=== PATIENT | female | born 1970 | race American Indian/Alaskan Native ===

== ENCOUNTER 2020-09-08 15:29 | Inpatient (IN) | payer SELFPAY ==
--- NOTE | 2020-09-08 16:39 | Event Note ---
ED Screening Note Date of service: 09/08/20 Time: 16:37 ED Screening Note: 50-year-old female patient with history of iron deficiency anemia presents to emergency department for a blood transfusion. Patient received a telephone call from her primary care provider today, who told her that her hemoglobin was 6.4, and she needed to come to the emergency department. She endorses dyspnea, cough, and congestion. States multiple COVID-19 tests have been negative. States her menstrual cycles have been heavy but she is not currently bleeding. No recent trauma. No new medications. General: Awake, appropriately interactive, no acute distress. Neck: Supple. Full range of motion intact. Cardiovascular: Normal peripheral perfusion. Pulmonary: No respiratory distress. Patient is speaking normally without use of accessory muscles. Skin: No apparent rashes or lesions. Neurological: No facial asymmetry. Speech is clear. Follows commands. Patient is alert and oriented. Musculoskeletal: Moves all four extremities spontaneously with normal range of motion. Psych: Cooperative. Appropriate mood and affect. I have greeted and performed a focused rapid initial assessment of this patient. A comprehensive ED assessment and evaluation of the patient, analysis of all test results, and completion of the medical decision-making process will be conducted by additional ED providers. This initial assessment/diagnostic orders/clinical plan/treatment(s) is/are subject to change based on patients health status, clinical progression and re-assessment. Further treatment and workup at subsequent clinical provider's discretion. Patient/guardian urged not to elope from the ED as their condition may be serious if not clinically assessed and managed.
--- NOTE | 2020-09-08 17:32 | XRay Report ---
CHEST 2 VIEWS INDICATION / CLINICAL INFORMATION: SOB. COMPARISON: None available. FINDINGS: SUPPORT DEVICES: None. HEART / MEDIASTINUM: No significant abnormality. LUNGS / PLEURA: No significant pulmonary or pleural abnormality. No pneumothorax. ADDITIONAL FINDINGS: No significant additional findings. IMPRESSION: 1. No acute findings. Signer Name: Silvano Corona MD Signed: 09/08/2020 5:28 PM Workstation Name: [id number]
[2020-09-08 17:39] LABS: INR 0.97 (0.87-1.13)
[2020-09-08 17:40] LABS: Partial Thromboplastin Time 23.8 Sec. (24.2-36.6)
[2020-09-08 17:48] LABS: Basophils # (Auto) 0.1 K/mm3 (0.0-0.1); Eosinophils % (Auto) 0.4 % (0.0-4.3); Mean Corpuscular HGB Conc 28 % (30-34); Monocytes # (Auto) 0.9 K/mm3 (0.0-0.8); Monocytes % (Auto) 7.1 % (0.0-7.3); Platelet Count 406 K/mm3 (140-440); Red Blood Count 4.23 M/mm3 (3.65-5.03)
[2020-09-08 17:53] LABS: Hematocrit 24.4 % (30.3-42.9); Hemoglobin 6.8 gm/dl (10.1-14.3); Lymphocytes % (Auto) 25.1 % (13.4-35.0); Mean Corpuscular Volume 58 fl (79-97); Red Cell Distribution Width 24.9 % (13.2-15.2)
[2020-09-08 17:54] LABS: Basophils % (Auto) 1.1 % (0.0-1.8)
[2020-09-08 18:02] LABS: Alanine Aminotransferase 8 units/L (7-56); Albumin 4.5 g/dL (3.9-5); Blood Urea Nitrogen 13 mg/dL (7-17); Calcium 9.4 mg/dL (8.4-10.2); Hemolysis Index 0
[2020-09-08 18:06] LABS: BUN/Creatinine Ratio 22
--- NOTE | 2020-09-09 02:58 | Emergency Department Report ---
<CHAVA MATHIAS - Last Filed: 09/09/20 02:53> ED General Adult HPI - General Chief complaint: Medical Clearance Stated complaint: TRANSFUSION Time Seen by Provider: 09/09/20 02:16 Source: patient Mode of arrival: Ambulatory Limitations: No Limitations - History of Present Illness Initial comments: 50-year-old -[place] female with a past medical history of an iron deficiency anemia presents to the emergency department complaining of weakness, lightheadedness, presyncope and increased fatigue with her usual activities of daily living of unknown etiology. She went to her doctor's office to be evaluated and was called back at home and advised to go to the emergency department for treatment due to anemia. She reports no hemoptysis, hematemesis hematochezia no melena no diarrhea no chest pain no palpitations or bleeding of any type to her knowledge. - Related Data Allergies Allergy/AdvReac Type Severity Reaction Status Date / Time No Known Allergies Allergy Unverified 12/20/14 12:42 ED Review of Systems Comment: All other systems reviewed and negative ED Past Medical Hx - Past Medical History Previous Medical History?: Yes Additional medical history: anemia - Surgical History Past Surgical History?: No ED Physical Exam - General Limitations: No Limitations General appearance: alert, in no apparent distress - Head Head exam: Present: atraumatic, normocephalic - Eye Eye exam: Present: normal appearance, PERRL, EOMI - ENT ENT exam: Present: mucous membranes moist - Neck Neck exam: Present: normal inspection, full ROM - Respiratory Respiratory exam: Present: normal lung sounds bilaterally. Absent: respiratory distress, wheezes, rales, rhonchi - Cardiovascular Cardiovascular Exam: Present: regular rate, normal rhythm. Absent: systolic murmur, diastolic murmur, rubs, gallop - GI/Abdominal GI/Abdominal exam: Present: soft, normal bowel sounds. Absent: distended, tenderness, guarding - Rectal Rectal exam: Present: heme (-) stool (fiscal technician was present during examin ation to service attendant cafeteria) - Extremities Exam Extremities exam: Present: normal inspection - Back Exam Back exam: Present: normal inspection. Absent: CVA tenderness (R), CVA tenderness (L) - Neurological Exam Neurological exam: Present: alert, oriented X3, CN II-XII intact, normal gait - Psychiatric Psychiatric exam: Present: normal affect, normal mood. Absent: anxious, flat affect, manic - Skin Skin exam: Present: warm, dry, intact, normal color. Absent: rash, cyanosis, diaphoretic, urticaria, petechiae, abrasion, ecchymosis ED Medical Decision Making - Lab Data Result diagrams: 09/08/20 16:50 09/08/20 16:50 ED Disposition Clinical Impression: Symptomatic anemia Disposition: DC-09 OP ADMIT IP TO THIS HOSP Is pt being admited?: Yes Does the pt Need Aspirin: No Condition: Critical <PETRONA LANDA III - Last Filed: 09/09/20 05:42> ED General Adult HPI - General PUI?: No ED Review of Systems ROS: Stated complaint: TRANSFUSION Other details as noted in HPI ED Course Vital Signs 09/08/20 09/09/20 09/09/20 16:20 03:16 03:38 Temperature 98.8 F Pulse Rate 81 74 Respiratory 18 21 16 Rate Blood Pressure 125/78 134/80 O2 Sat by Pulse 100 100 Oximetry 09/09/20 04:00 Temperature Pulse Rate 75 Respiratory 18 Rate Blood Pressure 139/79 O2 Sat by Pulse 100 Oximetry - Reevaluation(s) Reevaluation #1: I reviewed the findings and management of this patient in real-time and I have personally seen and examined this patient and participated in the decision making for this patient with the midlevel. Patient is a 50-year-old female that came into the emergency room with complaints of weakness and fatigue. Patient found to have a hemoglobin less than 7. Patient typed and crossed and will be transfused 1 unit. Patient to be admitted to the hospital service for further evaluation treatment and observation. I examined the patient. Patient has normal S1-S2. Patient's lung sounds are clear. Patient has scleral pallor noted to her bilateral eyes. Patient skin is intact. Patient is alert and oriented x4. 09/09/20 03:33 Reevaluation #2: I discussed all results with patient. I discussed plan of care with patient. Patient agrees with plan of care and admission. Patient to be admitted to the hospitalist service. 09/09/20 03:45 - Consultations Consultation #1: hospitalist consulted for admission. Hospitalist to admit patient. 09/09/20 03:34 ED Medical Decision Making - Lab Data Result diagrams: 09/08/20 16:50 09/08/20 16:50 - Medical Decision Making Patient is a 50-year-old female that presents emergency room with complaints of weakness, fatigue, lightheadedness presyncope. Patient had labs done and were unremarkable except for severe anemia. Patient's hemoglobin less than 7. Patient typed and crossed for transfusion. Patient admitted to the hospital service for further evaluation treatment. Critical care time documented due to the multiple reassessments, prolonged time at the bedside, interpretation of diagnostics and labs. - Differential Diagnosis Fatigue, weakness, presyncope, lightheadedness, anemia Critical Care Time: Yes Critical care time in (mins) excluding proc time.: 35 Critical care attestation.: If time is entered above; I have spent that time in minutes in the direct care of this critically ill patient, excluding procedure time. Critical Care Time: 35 minutes ED Disposition Is pt being admited?: Yes Does the pt Need Aspirin: No Time of Disposition: 05:33
[2020-09-09] MEDS ORDERED: SODIUM CHLORIDE 0.9% 500 ML 500 ML IV ONE (03:07)
[2020-09-09] MEDS ORDERED: ACETAMINOPHEN 325 MG TAB PO PRN (03:26)
[2020-09-09] MEDS ORDERED: ONDANSETRON 4 MG/2 ML INJ IV PRN (03:26)
[2020-09-09] MEDS ORDERED: MAGNESIUM HYDROXIDE (MOM) ORAL LIQD UDC PO PRN (03:27)
--- NOTE | 2020-09-09 03:36 | History and Physical Report ---
History of Present Illness Date of examination: 09/09/20 Date of admission: 09/09/20 03:01 Chief complaint: Dizziness History of present illness: 50-year-old -Citizen Of The [place] female with known history of anemia presenting to the emergency room today complaining of generalized weakness and lightheadedness. She also indicates that she has been having generalized fa tigue and has been unable to carry out her usual activities. Patient has known history of uterine fibroid and has been having heavy bleeding during her menstruation. She has been following up with her nurse behavioral health care and had also been on iron pills. Patient had gone to see a nurse behavioral health care for the past few days and had some blood work and she was subsequently encouraged to report to the emergency room for possible blood transfusion as her hemoglobin was low. She denies any chest pain but has had occasional shortness of breath. No nausea vomiting, no diarrhea, no abdominal pain, no hematuria or dysuria, no hematochezia, no melena and no hematemesis. Work-up in the emergency room today revealsHemoglobin of 6.6.8 and hematocrit of 24.4. Patient had a mildly low potassium of 3.4 She is being scheduled for blood transfusion for symptomatic anemia. Past History Past Medical History: anemia Past Surgical History: No surgical history Social history: no significant social history Family history: no significant family history Medications and Allergies Allergies Allergy/AdvReac Type Severity Reaction Status Date / Time No Known Allergies Allergy Unverified 12/20/14 12:42 Active Meds: Active Medications Acetaminophen (Acetaminophen 325 Mg Tab) 650 mg PO Q4H PRN PRN Reason: Pain MILD(1-3)/Fever >100.5/BENITEZ Magnesium Hydroxide (Magnesium Hydroxide (Mom) Oral Liqd Udc) 30 ml PO Q4H PRN PRN Reason: Constipation Ondansetron HCl (Ondansetron 4 Mg/2 Ml Inj) 4 mg IV Q8H PRN PRN Reason: Nausea And Vomiting Sodium Chloride (Sodium Chloride 0.9% 10 Ml Flush Syringe) 10 ml IV PRN PRN PRN Reason: LINE FLUSH Sodium Chloride (Sodium Chloride 0.9% 10 Ml Flush Syringe) 10 ml IV BID MEET Sodium Chloride (Sodium Chloride 0.9% 10 Ml Flush Syringe) 10 ml IV PRN PRN PRN Reason: LINE FLUSH Review of Systems Constitutional: fatigue, lethargy, no fever, no chills Ears, nose, mouth and throat: no nasal congestion, no sore throat Cardiovascular: no chest pain, no palpitations Respiratory: shortness of breath, no cough Gastrointestinal: no abdominal pain, no nausea, no vomiting, no diarrhea Genitourinary Female: no flank pain, no dysuria, no hematuria Menstruation: period heavy, other (Menstruation last for about 14 days at times.) Musculoskeletal: no neck pain, no low back pain Integumentary: no rash, no pruritis Neurological: other (Dizziness), no headaches, no confusion Psychiatric: no anxiety, no depression Endocrine: no polydipsia, no polyuria, no nocturia Exam - Constitutional Vitals: Temp Pulse Resp BP Pulse Ox 98.8 F 81 18 125/78 100 09/08/20 16:20 09/08/20 16:20 09/08/20 16:20 09/08/20 16:20 09/08/20 16:20 General appearance: Present: no acute distress, well-nourished - EENT Eyes: Present: PERRL. Absent: scleral icterus ENT: hearing intact, clear oral mucosa, dentition normal - Neck Neck: Present: supple, normal ROM - Respiratory Respiratory effort: normal Respiratory: bilateral: CTA - Cardiovascular Rhythm: regular Heart Sounds: Absent: S1 & S2, gallop, systolic murmur, diastolic murmur, rub, click - Extremities Extremities: no ischemia, pulses intact, pulses symmetrical, No edema, normal temperature, normal color, Full ROM Peripheral Pulses: within normal limits - Abdominal General gastrointestinal: Present: soft, non-tender, non-distended, normal bowel sounds. Absent: mass - Integumentary Integumentary: Present: clear, warm, dry, pale, normal turgor. Absent: rash - Musculoskeletal Musculoskeletal: strength equal bilaterally - Psychiatric Psychiatric: appropriate mood/affect, intact judgment & insight, memory intact, cooperative - Neurologic Neurologic: CNII-XII intact, no focal deficits, moves all extremities HEART Score - HEART Score Troponin: Troponin T < 0.010 ng/mL (0.00-0.029) 09/08/20 16:50 Results - Labs CBC & Chem 7: 09/08/20 16:50 09/08/20 16:50 Labs: Abnormal lab results 09/08/20 09/08/20 09/08/20 Range/Units 16:50 16:50 16:50 WBC 12.1 H (4.5-11.0) K/mm3 Hgb 6.8 L (10.1-14.3) gm/dl Hct 24.4 L (30.3-42.9) % MCV 58 L (79-97) fl MCH 16 L (28-32) pg MCHC 28 L (30-34) % RDW 24.9 H (13.2-15.2) % [place] # (Auto) 0.9 H (0.0-0.8) K/mm3 Seg Neutrophils # 8.0 H (1.8-7.7) K/mm3 APTT 23.8 L (24.2-36.6) Sec. Potassium 3.4 L (3.6-5.0) mmol/L Glucose 111 H (65-100) mg/dL Crossmatch 09/08/20 Range/Units 16:50 WBC (4.5-11.0) K/mm3 Hgb (10.1-14.3) gm/dl Hct (30.3-42.9) % MCV (79-97) fl MCH (28-32) pg MCHC (30-34) % RDW (13.2-15.2) % [place] # (Auto) (0.0-0.8) K/mm3 Seg Neutrophils # (1.8-7.7) K/mm3 APTT (24.2-36.6) Sec. Potassium (3.6-5.0) mmol/L Glucose (65-100) mg/dL Crossmatch See Detail Assessment and Plan - Patient Problems (1) Symptomatic anemia Current Visit: Yes Status: Acute Plan to address problem: Possibly secondary to to menorrhagia from a history of uterine fibroid Patient will be scheduled for blood transfusion. Will monitor CBC. Consult will be placed to [facility] [employer] for evaluation. (2) Hypokalemia Current Visit: Yes Status: Acute Plan to address problem: Potassium will be repleted. We will monitor chemistry. (3) DVT prophylaxis Current Visit: Yes Status: Acute Plan to address problem: Patient placed on sequential compression device. (4) Full code status Current Visit: Yes Status: Acute Plan to address problem: Patient is a full code.
[2020-09-09] MEDS ORDERED: POTASSIUM CHLORIDE 10 MEQ 10 MEQ/100 ML BAG IV ONE (04:15)
[2020-09-09] MEDS: SODIUM CHLORIDE 0.9% 500 ML 500 ML IV SCH ×2 (08:39→12:18)
[2020-09-09] MEDS ORDERED: POTASSIUM CHLORIDE ER 20 MEQ TAB PO SCH (09:00)
--- NOTE | 2020-09-09 10:20 | Discharge Summary ---
Providers - Providers Date of Admission: 09/09/20 03:01 Date of discharge: 09/09/20 Attending physician: EVER GARCIA 09/09/20 04:01 Consult to Physician [CONS] Routine Comment: Consulting Provider: JOSEFINA RDZ Physician Instructions: Reason For Exam: symptomatic anemia,menorrhagia Primary care physician: [facility], Hospitalization Reason for admission: symptomatic anemia Condition: Critical Hospital course: 50-year-old -[place] female with known history of anemia presenting to the emergency room today complaining of generalized weakness and lightheadedness. She also indicates that she has been having generalized fatigue and has been unable to carry out her usual activities. Patient has known history of uterine fibroid and has been having heavy bleeding during her menstruation. She has been following up with her bill hiker and had also been on iron pills. Pt admitted with dx of symptomatic anemia and hypokalemia. Pt. received 2 units PRBCs with resolution of sxs. D/c time 32 min Disposition: DC-01 TO HOME OR SELFCARE Final Discharge Diagnosis (Prints w/discharge instructions): symptomatic anemia and hypokalemia Core Measure Documentation - Palliative Care Palliative Care/ Comfort Measures: Palliative Care/Comfort Measures - Core Measures Any of the following diagnoses?: none Exam - Constitutional Vitals: Temp Pulse Resp BP Pulse Ox 98.3 F 75 16 117/72 100 09/09/20 08:38 09/09/20 09:53 09/09/20 09:53 09/09/20 09:53 09/09/20 09:53 General appearance: Present: no acute distress, well-nourished - EENT Eyes: Present: PERRL ENT: hearing intact, clear oral mucosa - Neck Neck: Present: supple, normal ROM - Respiratory Respiratory effort: normal Respiratory: bilateral: CTA - Cardiovascular Heart Sounds: Present: S1 & S2. Absent: rub, click - Extremities Extremities: pulses symmetrical, No edema Peripheral Pulses: within normal limits - Abdominal General gastrointestinal: Present: soft, non-tender, non-distended, normal bowel sounds Female genitourinary: Present: normal - Integumentary Integumentary: Present: clear, warm, dry - Musculoskeletal Musculoskeletal: gait normal, strength equal bilaterally - Psychiatric Psychiatric: appropriate mood/affect, intact judgment & insight - Neurologic Neurologic: CNII-XII intact, moves all extremities Plan Activity: advance as tolerated Weight Bearing Status: Weight Bear as Tolerated Diet: regular Additional Instructions: F/U with her [facility] physician Follow up with: NICHOLAS CARD MD [Primary Care Provider] - 3-5 Days
[2020-09-09 16:52] VITALS: BP 115/79
== END 2020-09-09 17:35 | disposition home or self-care (01) | DRG 812 ==
LOC: ED 15:29 → 3A 09-09 03:01
PROVIDERS: ADMIT Internal Medicine Geriatric Medicine; ATTEND Hospitalist
PROC: 30233N1 Transfusion of Nonautologous Red Blood Cells into Peripheral Vein, Percutaneous Approach (ICD-10-PCS; principal; 2020-09-09)
DX: D64.9 Anemia, unspecified (principal); E87.6 Hypokalemia
CPT/HCPCS: 36415; 71046; 80053; 83735; 84484; 84703; 85025; 85610; 85730; 86850; 86900; 86901; 86920; 96361; 96365; 96366; 96375; G0378; J7040; P9016